=== PATIENT | male | born 1940 | race Caucasian/White ===

== ENCOUNTER → 2016-11-10 | Outpatient (CLI) | payer OTHER ==
[2016-11-10 11:45] LABS: RED BLOOD COUNT 5.66 M/UL (4.20-5.50)
[2016-11-10 12:09] LABS: BUN/CREATININE RATIO 14 (0-10)
== END ==
LOC: RAD 10:40
PROVIDERS: Emergency Medicine
DX: E78.2 Mixed hyperlipidemia (principal); I12.9 Hypertensive chronic kidney disease with stage 1 through stage 4 chronic kidney disease, or unspecified chronic kidney disease; N18.2 Chronic kidney disease, stage 2 (mild); R06.02 Shortness of breath; R06.2 Wheezing; R53.83 Other fatigue
CPT/HCPCS: 36415; 71020; 80053; 82550; 82553; 83880; 84484; 85027; 93005